=== PATIENT | female | born 1950 | race Caucasian/White ===

== ENCOUNTER 2021-04-19 09:24 | Emergency (ER) | payer MEDICARE, OTHER ==
[2021-04-19] MEDS: Ketorolac 30 MG/ML SDV IVPUSH ONE (10:55)
[2021-04-19] MEDS: HYDROmorphone 1 MG/ML Syringe IVPUSH ONE (11:11)
[2021-04-19 11:39] LABS: ANION GAP 15.7 mmol/L (5-15); CHLORIDE,CL 99 mmol/L (98-107); SODIUM,NA 136 mmol/L (136-145)
[2021-04-19] MEDS: cefTRIAXone 1 GM Vial IVPUSH ONE (11:40)
== END 2021-04-19 11:50 | disposition home or self-care (01) ==
LOC: KA.ED 09:24
DX: N39.0 Urinary tract infection, site not specified (principal); Z87.891 Personal history of nicotine dependence
CPT/HCPCS: 36415; 80053; 81001; 85025; 87086; 96374; 96375; 99284; 99284-25; J0696; J1170; J1885